=== PATIENT | female | born 1955 | race Caucasian/White ===

== ENCOUNTER 2016-06-11 20:40 | Inpatient (IN) | payer MEDICARE, OTHER ==
[~2016-06-11 20:40] MED LIST: ADVAIR 50028 BLISTER INH; ALEVE220 M1 PO; AMBIEN10 M1 PO; AMBIEN10 MG PO; AMLODIPINE BESY10 M1 PO; ASPIRIN EC81 MG PO; ASPIRIN325 M3 PO; ASTEPRO30 M1 NS; ATIVAN0.5 M1 PO; BUSPIRONE HCL10 M2 PO; BUSPIRONE PO; CATAPRES0.1 MG PO; CIPRO500 MG PO; CLONAZEPAM1 MG PO; CLONIDINE HCL PO; CPAP; DIOVAN HCT 320/1 TAB PO; ESCITALOPRAM OX20 M1 PO; FUROSEMIDE20 MG PO; FUROSEMIDE40 M2 PO; KLOR-CON M2020 ME1 PO; LEXAPRO20 MG PO; LIVALO2 MG PO; METHOTREXATE2.5 MG PO; METOCLOPRAMIDE10 MG PO; MOBIC15 M2 PO; NEXIUM40 M1 PO; NEXIUM40 MG PO; NORVASC5 MG PO; ORPHENADRINE C100 M1 PO; OXAYDO7.5 MG PO; OXYCODONE HCL5 M1 PO; OXYGEN; PERCOCET 5MG/AP1 TAB PO; POTASSIUM CHLO10 MEQ PO; PREDNISONE5 M1 PO; PROVIGIL100 M1 PO; PROVIGIL100 MG PO; RHEUMATREX2.5 MG PO; SPIRIVA18 MCG IH; TYLENOL325 M2 PO; ULORIC40 MG PO; ULTRAM50 M1 PO; VALSARTAN-HCTZ1 EA13 PO; VIGAMOX3 ML OP; ZYRTEC10 M1 PO; ZYRTEC10 M7 PO
[2016-06-11 22:28] LABS: BASO % 0.2 % (0-2); EOS % 0.7 % (0-7); EOSINOPHIL ABSOLUTE COUNT 0.1 tho/cmm (0.0-0.7); HCT-HEMATOCRIT 36.2 % (34.0-49.0); HGB-HEMOGLOBIN 11.9 gm/dl (12.0-15.5); IMMATURE GRANULOCYTES ABSOLUTE 0.09 tho/cmm (0-0.03); IMMATURE GRANULOCYTES PERCENT 1.1 % (0-0.3); LYMPH % 20.4 % (20-45); LYMPH ABSOLUTE COUNT 1.7 tho/cmm (0.8-4.5); MCH (MEAN CORPUSCULAR HGB) 28.1 pg (28.0-32.0); MCHC MEAN CORPUSCULAR HGB CONC 32.9 % (32.0-36.0); MCV (MEAN CELL VOLUME) 85.6 fl (82.0-96.0); MEAN PLATELET VOLUME 9.1 cmc (9.4-12.4); MONO % 9.5 % (0-12); MONOCYTE ABSOLUTE COUNT 0.8 tho/cmm (0.0-1.2); NEUTROPHIL ABSOLUTE COUNT 5.6 tho/cmm (1.6-8.0); NEUTROPHIL-AUTOMATED 5.6 tho/cmm (1.6-8.0); NEUTROPHILS % 68.1 % (40-80); PLATELET COUNT 214 tho/cmm (150-450); RED BLOOD COUNT 4.23 mil/cmm (4.00-5.20); RED CELL DISTRIBUTION WIDTH 16.8 % (12.4-16.4); WHITE BLOOD COUNT 8.3 tho/cmm (4.0-10.0)
[2016-06-11 22:50] LABS: ANION GAP 14 mmol/L (0-20); BLOOD UREA NITROGEN 14 mg/dl (6-24); CALCIUM 8.5 mg/dl (8.5-10.5); CARBON DIOXIDE-VENOUS 28 mmol/L (22-32); CHLORIDE 99 mmol/l (96-110); CREATININE 0.84 mg/dl (0.50-1.10); GLUCOSE 122 mg/dL (70-110); MAGNESIUM 1.9 mg/dl (1.3-2.6); POTASSIUM 3.5 mmol/L (3.7-5.1); SODIUM 137 mmol/L (135-145); eGFR VALUE FOR BLACK >60 mL/Min
[2016-06-11] MEDS ORDERED: ASPIRIN81 M1 PO (22:56)
[2016-06-11] MEDS ORDERED: METHOTREXATE2.5 M1 PO (22:59)
[2016-06-11] MEDS ORDERED: BUSPIRONE HCL10 M2 PO (23:00)
[2016-06-11] MEDS ORDERED: REQUIP0.25 M1 PO (23:01)
[2016-06-11] MEDS ORDERED: NEURONTIN300 M1 PO ×2 (23:02)
[2016-06-11] MEDS ORDERED: DICLOFENAC SODI75 M2 PO (23:03)
[2016-06-11] MEDS ORDERED: CARAFATE1 G2 PO (23:04)
[2016-06-11] MEDS ORDERED: AUGMENTIN 875-1 EAC2 PO (23:04)
[2016-06-11] MEDS ORDERED: XARELTO15 M1 PO (23:05)
[2016-06-11] MEDS ORDERED: ROBINUL1 M1 PO (23:05)
[2016-06-13 04:12] LABS: ABG CO2 ARTERIAL 29 mmol/L (21-27); ARTERIAL BLD GAS O2 SATURATION 97 % (95-98); ARTERIAL BLOOD GAS PCO2 42 mmHg (32-45); ARTERIAL PO2 88 mmHg (70-100); BICARBONATE 28 mmol/L (21-28); BLOOD GAS BASE EXCESS 4 mM/L (-/+3); PH 7.44 Units (7.35-7.45)
[2016-06-13 05:11] LABS: ALKALINE PHOSPHATASE 62 U/L (33-138); ALT/SGPT 41 U/L (12-78); ANION GAP 10 mmol/L (0-20); AST/SGOT 19 U/L (10-40); BILIRUBIN,TOTAL 0.2 mg/dl (0-1.5); BLOOD UREA NITROGEN 17 mg/dl (6-24); CALCIUM 8.7 mg/dl (8.5-10.5); CARBON DIOXIDE-VENOUS 31 mmol/L (22-32); CHLORIDE 100 mmol/l (96-110); GLUCOSE 127 mg/dL (70-110); POTASSIUM 3.8 mmol/L (3.7-5.1); SODIUM 137 mmol/L (135-145); eGFR VALUE FOR BLACK >60 mL/Min
== END 2016-06-13 17:00 | DRG 176 ==
LOC: EDMED 20:40 → EMR2 06-12 03:24 → PCUA 06-12 04:00
PROVIDERS: Emergency Medicine; Family Medicine; Internal Medicine Critical Care Medicine; ADMIT Hospitalist
PROC: 5A09357 Assistance with Respiratory Ventilation, Less than 24 Consecutive Hours, Continuous Positive Airway Pressure (ICD-10-PCS; principal; 2016-06-12)
DX: I26.99 Other pulmonary embolism without acute cor pulmonale (principal); Z68.42 Body mass index [BMI] 45.0-49.9, adult; I10 Essential (primary) hypertension; E66.01 Morbid (severe) obesity due to excess calories; F32.9 Major depressive disorder, single episode, unspecified; F41.9 Anxiety disorder, unspecified; G47.33 Obstructive sleep apnea (adult) (pediatric); K21.9 Gastro-esophageal reflux disease without esophagitis; M06.9 Rheumatoid arthritis, unspecified; J44.9 Chronic obstructive pulmonary disease, unspecified; E78.5 Hyperlipidemia, unspecified; D86.9 Sarcoidosis, unspecified; Z87.891 Personal history of nicotine dependence; Z96.642 Presence of left artificial hip joint; I27.82 Chronic pulmonary embolism; Z23 Encounter for immunization
CPT/HCPCS: G0009; J7512; Q9967

== ENCOUNTER 2016-07-01 18:04 | Emergency (ER) | payer MEDICARE, OTHER ==
[~2016-07-01 18:04] MED LIST changes: +ASPIRIN81 M1 PO; +AUGMENTIN 875-1 EAC2 PO; +CARAFATE1 G2 PO; +DICLOFENAC SODI75 M2 PO; +METHOTREXATE2.5 M1 PO; +NEURONTIN300 M1 PO; +REQUIP0.25 M1 PO; +ROBINUL1 M1 PO; +XARELTO15 M1 PO
[2016-07-01] MEDS ORDERED: ULTRAM50 M1 PO (18:08)
[2016-07-01] MEDS ORDERED: ZYLOPRIM100 M1 PO (18:08)
[2016-07-01] MEDS ORDERED: WELLBUTRIN XL150 M1 PO (18:09)
[2016-07-01] MEDS ORDERED: SPIRIVA18 MC1 INH (18:09)
[2016-07-01 18:19] LABS: BASO % 0.2 % (0-2); EOS % 0.7 % (0-7); EOSINOPHIL ABSOLUTE COUNT 0.1 tho/cmm (0.0-0.7); HCT-HEMATOCRIT 34.1 % (34.0-49.0); HGB-HEMOGLOBIN 11.1 gm/dl (12.0-15.5); IMMATURE GRANULOCYTES ABSOLUTE 0.03 tho/cmm (0-0.03); IMMATURE GRANULOCYTES PERCENT 0.3 % (0-0.3); LYMPH % 17.1 % (20-45); LYMPH ABSOLUTE COUNT 1.5 tho/cmm (0.8-4.5); MCH (MEAN CORPUSCULAR HGB) 27.8 pg (28.0-32.0); MCHC MEAN CORPUSCULAR HGB CONC 32.6 % (32.0-36.0); MCV (MEAN CELL VOLUME) 85.3 fl (82.0-96.0); MEAN PLATELET VOLUME 8.8 cmc (9.4-12.4); MONO % 9.5 % (0-12); MONOCYTE ABSOLUTE COUNT 0.8 tho/cmm (0.0-1.2); NEUTROPHIL ABSOLUTE COUNT 6.3 tho/cmm (1.6-8.0); NEUTROPHIL-AUTOMATED 6.3 tho/cmm (1.6-8.0); NEUTROPHILS % 72.2 % (40-80); PLATELET COUNT 244 tho/cmm (150-450); RED CELL DISTRIBUTION WIDTH 15.6 % (12.4-16.4); WHITE BLOOD COUNT 8.7 tho/cmm (4.0-10.0)
[2016-07-01 18:33] LABS: ANION GAP 12 mmol/L (0-20); BLOOD UREA NITROGEN 21 mg/dl (6-24); CALCIUM 8.8 mg/dl (8.5-10.5); CARBON DIOXIDE-VENOUS 28 mmol/L (22-32); CHLORIDE 98 mmol/l (96-110); CREATININE 0.84 mg/dl (0.50-1.10); GLUCOSE 115 mg/dL (70-110); POTASSIUM 3.4 mmol/L (3.7-5.1); SODIUM 135 mmol/L (135-145); eGFR VALUE FOR BLACK 86 mL/Min
[2016-07-01] MEDS ORDERED: TIZANIDINE HCL2 M2 PO (18:51)
[2016-07-01] MEDS ORDERED: CARAFATE1 G2 PO (18:52)
[2016-07-01] MEDS ORDERED: NORCO 5-325 TA1 EACH PO (18:53)
== END 2016-07-01 19:02 ==
LOC: EDMED 18:04
PROVIDERS: Emergency Medicine
DX: R60.0 Localized edema (principal); R06.02 Shortness of breath; E87.6 Hypokalemia; I50.9 Heart failure, unspecified; I10 Essential (primary) hypertension; Z86.718 Personal history of other venous thrombosis and embolism; Z86.711 Personal history of pulmonary embolism; Z79.82 Long term (current) use of aspirin; Z79.899 Other long term (current) drug therapy; F17.210 Nicotine dependence, cigarettes, uncomplicated